=== PATIENT | male | born 1930 | race Caucasian/White ===

== ENCOUNTER 2016-08-06 10:37 | Emergency (ER) | payer OTHER, MEDICARE ==
[~2016-08-06] VITALS: Ht 162.6 cm; Wt 69.9 kg
[~2016-08-06 10:37] MED LIST: ALBUTEROL0.09 MG/A1 INH; BICALUTAMIDE50 MG PO; CALTRATE 600600 MG PO; COUMADIN 5 MG TA5 MG PO; DONEPEZIL HCL10 MG PO; DONEPEZIL HYDRO10 MG PO; ESCITALOPRAM10 MG PO; LISINOPRIL20 MG PO; NAMENDA XR14 MG PO; NAMENDA XR7 MG PO; NEXIUM 40MG40 MG PO; OMEPRAZOLE20 MG PO; SIMVASTATIN40 MG PO; TESSALON PERLE100 MG PO; WARFARIN SODIUM5 MG PO
--- NOTE | 2016-08-06 11:10 | ED AMS/SEIZURE/WEAK/DIZZY ---
History of Present Illness General Chief Complaint: Altered Mental Status Stated Complaint: ALTERED MS Source: patient, family, old records Exam Limitations: dementia Vital Signs & Intake/Output Vital Signs & Intake/Output Vital Signs Date Time Temp Pulse Resp B/P B/P Pulse O2 O2 Flow FiO2 Mean Ox Delivery Rate 08/06 1520 97.8 55 18 178/91 95 Room Air 08/06 1136 Room Air 08/06 1042 96.7 69 18 123/77 97 Room Air Allergies Coded Allergies: NO KNOWN ALLERGIES (08/09/10) Reconcile Medications Bicalutamide 50 MG TAB 1 TAB PO DAILY PROSTATE (Reported) DONEPEZIL HCL (Donepezil HCl) 10 MG TABLET 1 TAB PO BID DEMENTIA/ALZHEIMERS ( Reported) Escitalopram Oxalate 10 MG TABLET 1 TAB PO DAILY DEPRESSION (Reported) Esomeprazole (Nexium) 40 MG CAPSULE.DR 1 CAP PO DAILY GI (Reported) Lisinopril 20 MG TABLET 1 TAB PO DAILY BP (Reported) MEMANTINE HCL (Namenda XR) 7 MG CAP.SPR.24 1 CAP PO BID DEMENTIA/ALZHEIMERS ( Reported) Simvastatin 40 MG TABLET 1 TAB PO QPM CHOLESTEROL (Reported) Warfarin Sodium (Coumadin) 5 MG TABLET 1 TAB PO DAILY DVT (Reported) Triage Note: 85 YO MALE TO TRIAGE WITH FAMILY. PER FAMILY PT HAS BEEN STEADILY DECLINING OVER THE PAST WEEK. STATES HE HAS BEEN TRIPPING ALOT AND SPEAKING A LANUGUAGE THEY CANNOT UNDERSTAND. 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 PT C/O ABD PAIN AND GRABBING L GROIN AREA WITH MOVEMENT. PT TAKEN TO [facility] FOR EKG Triage Nurses Notes Reviewed? yes Onset: Abrupt Duration: week(s): (1), constant, getting worse Timing: recent history Injury Environment: home Severity: moderate, severe Severity Numbers: 8 No Modifying Factors: none Associated Symptoms: denies HPI: 85 year old male with past medical history of dementia, pulmonary embolism on coumadin, hypertension, dyslipidemia, peptic ulcers presents to ER with his family who report that over the past 1 week he has had a steadily declining mental status state. 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 His family states over the past week he has been more confused stumbling and nearly falling which is unlike him he normally ablates without the aid of any assistance. There is no known head strike. He has been intermittently complaining of pain to the left side of his abdomen. He denies headache. There's been no nausea or vomiting however his family reports that this morning he had episode of diarrhea. No black or bloody stools as far as they are aware. No modifying factors or associated symptoms otherwise there is never been episodes like this before. On arrival in my evaluation the patient denies any complaints (CHAN HOFFMAN) Past History Travel History Traveled to [facility] past 21 day No Medical History Any Pertinent Medical History? see below for history Neurological: Alzheimer's disease, dementia EENT: NONE Cardiovascular: hypertension, hyperlipidemia Respiratory: pulmonary embolism Gastrointestinal: GASTRIC ULCER Hepatic: NONE Renal: KIDNEY STONES URETERAL STENT STATUS POST STENT Musculoskeletal: ARTHRITIS Psychiatric: NONE Endocrine: NONE Blood Disorders: PE Cancer(s): prostate cancer Other Medical Hx: Shingles Surgical History Surgical History: URETERAL STENTS Psychosocial History Who do you live with Spouse Services at Home None What is your primary language Sammarinese Tobacco Use: Never used Family History Family History, If Any: Relation not specified for: *No pertinent family history Hx Contributory? No (CHAN HOFFMAN) Review of Systems Review of Systems Constitutional: Reports: see HPI. All Other Systems: Reviewed and Negative Comments Review of systems: See HPI, All other systems negative. Constitutional, no chills no fever, malaise no weight loss HEENT: No visual changes no sore throat no congestion, no ear pain Cardiovascular: No chest pain , no palpitation Skin: no rashes, no change in skin Respiratory: No dyspnea no cough no sputum GI: No nausea no vomiting, diarrhea, no bloating/constipation : No dysuria No hematuria, no frequency, no discharge Muscle skeletal: No joint pain, no joint swelling, no back pain, no neck pain, Neurologic: No numbness confusion, no headache Psych: No stress Heme/endocrine: No bruising Immunology: No lymphadenopathy (CHAN HOFFMAN) Physical Exam Physical Exam General Appearance: well developed/nourished, awake Comments: Well-developed well-nourished person in no acute distress HEENT: Normal EENT exam; PERRL, EOMI, no nystagmus. HEAD is atraumatic. moist mucous membranes. Neck: Supple, nontender normal range of motion without pain or tenderness Back: Nontender, no CVA tenderness. Full range of motion Cardiovascular: Regular rate and rhythms no murmurs rubs Respiratory: Chest nontender.There were no bony deformities, no asymmetry. No respiratory distress. Patient speaking in full complete sentences. Breath sounds clear to auscultation bilaterally: NO W/R/R Abdomen: Soft, nontender nondistended, no appreciable organomegaly. Normal bowel sounds. No rebound/guarding, No appreciable enlargement of the abdominal aorta, No ascites. no hernia Rectal: Brown stool heme-negative Extremity: No edema, full range of motion of extremities, normal and equal pulses bilaterally, 5 out of 5 strength noted to bilateral upper and lower extremities Neuro: Alert oriented x1, motor sensory normal, cranial nerves II through XII grossly intact. There were no obvious focal neurologic abnormalities. Skin: No appreciable rash on exposed skin, skin is warm and dry. Psych: Mood and affect is normal, memory and judgment is normal. Core Measures ACS in differential dx? Yes CVA/TIA Diagnosis: No Severe Sepsis Present: No Septic Shock Present: No (PENELOPE ROBBINS,CHAN) Progress Differential Diagnosis: arrythmia, anemia, benign positional vertigo, CVA/stroke , dehydration, drug intoxication, electrolyte imbalance, GI bleed, hypoglycemia, hypoxia, intracranial Hem., intracranial mass/tumor, meningitis, pneumonia, postural hypotension, presyncope, post-traumatic vertigo, seizure disorder, UTI/ pyelo, vertebrobasilar insuff, sepsis,pna,diverticulitis,colitis Plan of Care: Orders Procedure Date/time Status LACTIC ACID 08/06 1426 Complete LACTIC ACID 08/06 1130 Complete Saline Lock 08/06 1126 Active PARTIAL THROMBOPLASTIN TIME 08/06 1126 Complete PROTHROMBIN TIME 08/06 1126 Complete CULTURE,URINE 08/06 1051 Active URINALYSIS 08/06 1051 Complete TROPONIN LEVEL 08/06 1051 Complete COMPREHENSIVE METABOLIC PANEL 08/06 1051 Complete CBC WITHOUT DIFFERENTIAL 08/06 1051 Complete EKG 08/06 1042 Active Current Medications Sig/Sasha Start time Last Medication Dose Stop Time Status Admin Heparin Sodium/ 25,000 UNIT ONCE ONE 08/06 1515 CAN Dextrose 08/06 1530 (Heparin) Dextrose/Water 500 ML (D5W) Laboratory Tests 08/06/16 1434: Lactic Acid 1.1 08/06/16 1211: PT 12.4, INR 1.18 H, APTT 27 08/06/16 1210: Urinalysis LIGHT H, Urine Color YEL, Urine Clarity CLEAR, Urine pH 6.5, Ur Specific [place] 1.015, Urine Protein TRACE H, Urine Ketones NEG, Urine Nitrite NEG, Urine Bilirubin NEG, Urine Urobilinogen 0.2, Ur Leukocyte Esterase NEG, Ur Microscopic SEDIMENT EXAMINED, Urine RBC 1-3, Urine WBC RARE, Ur Epithelial Cells FEW, Urine Bacteria FEW H, Hyaline Casts 1-3 H, Urine Mucus MOD H, Urine Hemoglobin TRACE-INTACT H, Urine Glucose NEG 08/06/16 1130: Anion Gap 12, Estimated GFR > 60, BUN/Creatinine Ratio 16.4, Glucose 131 H, Lactic Acid 2.6 H, Calcium 8.9, Total Bilirubin 1.0, AST 26, ALT 30, Alkaline Phosphatase 54, Troponin I < 0.01, Total Protein 6.4, Albumin 3.6, Globulin 2.8, Albumin/Globulin Ratio 1.3, CBC w Diff NO MAN DIFF REQ, RBC 4.89, MCV 87.2, MCH 28.6, RDW 13.9, MPV 9.7, Gran % 65.2, Lymphocytes % 26.2, Monocytes % 6.9, Eosinophils % 1.4, Basophils % 0.3, Absolute Granulocytes 3.8, Absolute Lymphocytes 1.5, Absolute Monocytes 0.4, Absolute Eosinophils 0.1, Absolute Basophils 0, PUBS MCHC 32.8 L 08/06/16 1126: Lactic Acid Cancelled Microbiology 08/06 1209 URINE ROUT: Urine Culture - RECD Labs ordered old records reviewed patient alert and oriented to one baseline per family CASE D/W DR ALCANTARA 1250 I SPOKE WITH ONCALLN EUROSURG DR GROVE, DOES NOT BELIEVE PT REQUIRES SURGICAL INTERVENTION AT HTIS TIME, advised [facility] ? mri unavailable at this time here.. PENDING INR, CASE D/W DR ALCANTARA WILL GET CTA HEAD/NECK ANGIO PT RESTING IN BED AT THISTIME WITH NO COMPLAITNS. 1310 I spokewith the pts family mallory over the phone to convey the results of his ct and labs to date Repeat evaluation patient is awake alert and oriented 1 no changes in mental status resting without any complaints 1500 case d/w dr matouk [facility], will accept pt, advised hep bolus and gtt D/WTHE PT AND HIS FAMILY PLAN OF CARE AND NEED FOR TRANSFER WHICH THEY ARE IN AGREEMENT WITH son MILAN [phone] MALLORY [id number] (PENELOPE ROBBINS,CHAN) Diagnostic Imaging: Viewed by Me: Radiology Read, CT Scan. Discussed w/RAD: Radiology Read, CT Scan. Radiology Impression: PATIENT: SHANNEN FISH PRESENT AGE: 85 PATIENT ACCOUNT NO: [id number] : [birth year] LOCATION: [facility] ORDERING PHYSICIAN: CHAN ROBBINS SERVICE DATE: 08/06/16 EXAM TYPE: RAD - XRY- CHEST XRAY, PA AND LATERAL EXAMINATION: XR CHEST CLINICAL INFORMATION: Altered mental syndrome COMPARISON: Chest 12/03/2015. TECHNIQUE: 2 views of the chest were obtained. FINDINGS: The lungs are in moderate inspiration with minimal right basilar atelectasis. Rest of lungs are clear. The heart size is borderline enlarged with normal-appearing pulmonary vascularity. No gross bony abnormality seen. IMPRESSION: Minimal atelectatic changes right lung base. Rest of lungs are clear. DICTATED BY: KWESI SANZ MD DATE/TIME DICTATED:08/06/161252 STEEL WHEEL ENGRAVER:ELÍAS DATE/TIME TRANSCRIBED:08/06/161252 CONFIDENTIAL, DO NOT COPY WITHOUT APPROPRIATE AUTHORIZATION. <Electronically signed in Other Vendor System> SIGNED BY: KWESI SANZ MD 08/06/16 1258, :::::::::::::::::: ::::::::::::::::::::::::::::::::::::::::::::::::::::::::: :::::::::::::::::::::: ::::::::::::::::::::::::::::::::::::::::::::::::::::: :::::::::::::::::::::::::: ::::::::::::::::::::::::::::::::::::::::::::::::: :::::::::::::::::::::::::::::: ::::::::::::::::::::::::::::::::::::::::::: PATIENT: SHANNEN FISH PRESENT AGE: 85 PATIENT ACCOUNT NO: [id number] : [birth year] LOCATION: [facility] ORDERING PHYSICIAN: CHAN ROBBINS SERVICE DATE: 08/06/16 EXAM TYPE: CAT - CT HEAD WO IV CONTRAST EXAMINATION: CT HEAD WITHOUT CONTRAST CLINICAL INFORMATION: Altered mental status. Confusion. Evaluate for acute intracranial hemorrhage. COMPARISON: CT scan of the head 12/03/2015. TECHNIQUE: Contiguous axial imaging was performed from the skull base to vertex without intravenous administration of contrast. DLP: 610.59 mGy-cm FINDINGS: The left transverse sinus, sigmoid sinus, and the visualized portion of the left upper internal jugular vein are hyperdense consistent with thrombosis. There is no acute intracranial hemorrhage or abnormal extra axial collection. No intracranial mass effect or midline shift. Lateral and third ventricles are slightly prominent and there is proportionate prominence of the subarachnoid spaces reflecting a mild degree of global parenchymal volume loss. Numerous foci of hypoattenuation are visualized within the perivascular white matter. 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 Montoya-white matter differentiation is otherwise preserved and there is no evidence of acute territorial infarct. The calvarium and skull base are intact. Mastoid air cells and middle ear cavities are well aerated. Visualized paranasal sinuses are well-aerated. IMPRESSION: There is a thrombus within the left transverse sinus that extends into the left internal jugular vein. Otherwise stable CT scan of the head with no evidence of hemorrhagic venous infarct. This critical result was discussed with Chan Blood at 08/06/2016 12:21 PM and it was ascertained that the content and urgency of the report was understood at the time of direct communication. DICTATED BY: BANDAR BURTON MD DATE/TIME DICTATED:08/06/161213 STEEL WHEEL ENGRAVER:ELÍAS DATE/TIME TRANSCRIBED:08/06/161213 CONFIDENTIAL, DO NOT COPY WITHOUT APPROPRIATE AUTHORIZATION. <Electronically signed in Other Vendor System> SIGNED BY: BANDAR BURTON MD 08/06/16 1230, EXAM TYPE: CAT - CT HEAD ANGIOGRAM; CT NECK ANGIOGRAM EXAMINATION: CT NECK ANGIOGRAM, CT HEAD ANGIOGRAM CLINICAL INFORMATION : Sinus thrombosis. COMPARISON: CT scan of the head 08/06/2016. TECHNIQUE: Tool Salvage Worker images were obtained. A CT angiogram of the head and neck was performed in the arterial phase after the intravenous administration of 100 mL Optiray 350. Pre and delayed postcontrast images of the head were also obtained. MIP reconstructions were generated in multiple orientations at the acquisition workstation. Multiple three-dimensional surface rendered images and maximum intensity projection images were generated on a dedicated 3-D lab workstation. Total exam dose-length product 2476.58 mGy-cm FINDINGS: Head: Hyperdensity of the left transverse sinus, sigmoid sinus, and the left upper internal jugular vein is redemonstrated and there is a corresponding filling defect within these vessels on the delayed postcontrast images consistent with dural venous sinus thrombosis. There is no acute intracranial hemorrhage or abnormal extra-axial collection. No intracranial mass effect or midline shift. Lateral and third ventricles are prominent and there is proportionate prominence of the subarachnoid spaces reflecting a mild degree of parenchymal volume loss. There are numerous foci of hypoattenuation throughout the periventricular white matter that most likely represent a chronic manifestation of small vessel ischemia. 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 Montoya-white matter differentiation is otherwise grossly preserved and there is no evidence of acute territorial infarct. CT angiogram: The aortic arch apex is unremarkable and the origins of the major aortic branches are patent. Common carotid arteries are grossly unremarkable. Partially calcified atheromatous plaque is visualized at both carotid bifurcations. The patency of the extracranial internal carotid arteries and the cervical segments of the vertebral arteries cannot be determined. The intracranial vessels are insufficient opacified and the patency of these vessels cannot be determined on the basis of this examination. Other: Visualized lung apices are clear. Soft tissues of the neck including the thyroid gland are unremarkable. There is mild paranasal sinus disease primarily affecting the ethmoid air cells and maxillary sinuses. Mastoid air cells and middle ear cavities are well-aerated. IMPRESSION: A venous sinus thrombosis within the left transverse sinus beginning at the torcula and extending into the left upper internal jugular vein is redemonstrated. The CT angiogram is nondiagnostic. DICTATED BY: BANDAR BURTON MD DATE/TIME DICTATED:08/06/161411 STEEL WHEEL ENGRAVER:ELÍAS DATE/TIME TRANSCRIBED:08/06/161411 CONFIDENTIAL, DO NOT COPY WITHOUT APPROPRIATE AUTHORIZATION. <Electronically signed in Other Vendor System> SIGNED BY: BANDAR BURTON MD 08/06/16 1435 Initial ED EKG: NSR AT 60, NONSPECIFIC ST SEG CHANGES, LAD Prior EKG: unchanged (11/2015) (CHAN HOFFMAN) Departure Departure Disposition: [facility] (ACUTE) Condition: Stable Clinical Impression Primary Impression: Thrombosis transverse sinus Secondary Impressions: Diverticulosis, Lesion of lung, Liver cyst, Renal cyst Referrals: MILAN WHITTAKER MD (PCP/Family) Departure Forms: Customer Survey General Discharge Information (CHAN HOFFMAN) PA/EDGE TRIMMING MACHINE OPERATOR Co-Sign Statement Statement: ED Attending supervision documentation- x I saw and evaluated the patient. I have also reviewed all the pertinent lab results and diagnostic results. I agree with the findings and the plan of care as documented in the PA's/EDGE TRIMMING MACHINE OPERATOR's documentation. [] I have reviewed the ED Record and agree with the PA's/EDGE TRIMMING MACHINE OPERATOR's documentation. [] Additions or exceptions (if any) to the PAs/EDGE TRIMMING MACHINE OPERATOR's note and plan are summarized below: [] (MARICRUZ ROSADO,YANCY) Critical Care Note Critical Care Note Critical Care Time: 30-74 min (CHAN HOFFMAN)
[2016-08-06 11:47] LABS: ABSOLUTE BASOPHIL COUNT 0 /CUMM (0.0-0.2); ABSOLUTE EOSINOPHIL COUNT 0.1 /CUMM (0.0-0.7); ABSOLUTE GRANULOCYTE CT 3.8 /CUMM (1.4-6.5); ABSOLUTE LYMPH COUNT 1.5 /CUMM (1.2-3.4); ABSOLUTE MONOCYTE COUNT 0.4 /CUMM (0.10-0.60); BASOPHIL % 0.3 % (0.0-2.0); EOSINOPHIL % 1.4 % (0-5); GRANULOCYTE % 65.2 % (42.2-75.2); HEMATOCRIT 42.7 % (42-52); MEAN CORPUSCULAR HGB 28.6 PG (27.0-31.0); MEAN CORPUSCULAR HGB CONC 32.8 G/DL (33.0-37.0); MEAN CORPUSCULAR VOLUME 87.2 FL (80.0-94.0); MEAN PLATELET VOLUME 9.7 FL (7.4-10.4); PLATELET COUNT 125 /CUMM (130-400); RBC DISTRIBUTION WIDTH 13.9 % (11.5-14.5); RED BLOOD CELL CT 4.89 /CUMM (4.70-6.10); WHITE BLOOD CELL COUNT 5.8 /CUMM (4.8-10.8)
--- NOTE | 2016-08-06 12:30 | CT SCAN REPORT ---
EXAMINATION: CT HEAD WITHOUT CONTRAST CLINICAL INFORMATION: Altered mental status. Confusion. Evaluate for acute intracranial hemorrhage. COMPARISON: CT scan of the head 12/03/2015. TECHNIQUE: Contiguous axial imaging was performed from the skull base to vertex without intravenous administration of contrast. DLP: 610.59 mGy-cm FINDINGS: The left transverse sinus, sigmoid sinus, and the visualized portion of the left upper internal jugular vein are hyperdense consistent with thrombosis. There is no acute intracranial hemorrhage or abnormal extra axial collection. No intracranial mass effect or midline shift. Lateral and third ventricles are slightly prominent and there is proportionate prominence of the subarachnoid spaces reflecting a mild degree of global parenchymal volume loss. Numerous foci of hypoattenuation are visualized within the perivascular white matter. 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 Montoya-white matter differentiation is otherwise preserved and there is no evidence of acute territorial infarct. The calvarium and skull base are intact. Mastoid air cells and middle ear cavities are well aerated. Visualized paranasal sinuses are well-aerated. IMPRESSION: There is a thrombus within the left transverse sinus that extends into the left internal jugular vein. Otherwise stable CT scan of the head with no evidence of hemorrhagic venous infarct. This critical result was discussed with Ottoniel Blood at 08/06/2016 12:21 PM and it was ascertained that the content and urgency of the report was understood at the time of direct communication.
[2016-08-06 12:39] LABS: PT 12.4 SEC (9.4-12.5); PTT 27 SEC (25-37)
--- NOTE | 2016-08-06 12:58 | RADIOLOGY REPORT ---
EXAMINATION: XR CHEST CLINICAL INFORMATION: Altered mental syndrome COMPARISON: Chest 12/03/2015. TECHNIQUE: 2 views of the chest were obtained. FINDINGS: The lungs are in moderate inspiration with minimal right basilar atelectasis. Rest of lungs are clear. The heart size is borderline enlarged with normal-appearing pulmonary vascularity. No gross bony abnormality seen. IMPRESSION: Minimal atelectatic changes right lung base. Rest of lungs are clear.
--- NOTE | 2016-08-06 13:24 | CT SCAN REPORT ---
EXAMINATION: CT ABDOMEN AND PELVIS WITHOUT CONTRAST CLINICAL INFORMATION: Colitis, diverticulitis, and diarrhea. COMPARISON: Multiple prior examinations most recent CT August 2014 and PET/CT March 2015. TECHNIQUE: Multidetector volumetric imaging was performed from the superior aspect of the liver through the pubic symphysis. Sagittal and coronal reformatted images were obtained on the technologist's workstation. DLP: 498 mGy-cm. FINDINGS: LUNG BASES: There is persistent slightly more prominent lobulated opacity at the posterior right lower lobe measuring approximately 19 mm transverse and 19 mm AP, previously approximately 14 mm transverse and 16 mm AP. Minimal groundglass opacity bilaterally may reflect mild edema. Unchanged compared to prior. LIVER, GALLBLADDER, AND BILIARY TREE: There is a stable 9 mm hypodense lesion in the right lobe of the liver seen on axial image 15 series 2 compatible with a small simple cyst, unchanged. The 2.4 cm cyst in the left lobe of the liver adjacent to the falciform ligament also remains unchanged. The gallbladder is unremarkable with no evidence of radiopaque gallstones, gallbladder wall thickening, or obvious pericholecystic inflammatory changes. PANCREAS: Atrophic. No mass. SPLEEN: Unremarkable. ADRENAL GLANDS: Unremarkable. KIDNEYS AND URETERS: Atrophic right kidney unchanged. A 2 cm cyst in the upper pole of the left kidney, unchanged. No stones. No hydronephrosis or hydroureter. BLADDER: Unremarkable. GASTROINTESTINAL TRACT: Scattered diverticulosis without diverticulitis. Appendix not seen. No inflammatory changes in the right lower quadrant or mesentery. Small bowel normal. Stomach normal. ABDOMINAL WALL: No significant hernia is appreciated. LYMPH NODES: Normal. VASCULAR: Mild arterial calcification throughout, unchanged. PELVIC VISCERA: Unremarkable. OSSEOUS STRUCTURES: Chondrocalcinosis in the symphysis pubis. Mild degenerative changes of both sacroiliac joints, unchanged. Multilevel spondylosis and degenerative disc changes throughout the visualized thoracolumbar spine. L2 compression fracture, unchanged. New severe compression fracture involving the superior and inferior endplates of T12 not seen on a prior CT of March 2015. But likely evident on a chest x-ray of September 2015. IMPRESSION: 1. No acute abnormality in the abdomen. Diverticulosis of the large bowel but no evidence of diverticulitis. 2. Persistent to slightly more prominent opacity compared with March [address] chest November 2014. In the right lower lobe considered to be a benign process on PET/CT March 2015. 3. Stable benign cysts in the liver and left kidney. 4. Stable atrophic right kidney. 5. Mild calcific atherosclerotic disease. 6. Compression fracture of T12 new compared to CT March 2015 but likely present on a prior chest x-ray September 2015. 7. Stable old compression fracture L2.
--- NOTE | 2016-08-06 14:34 | CT SCAN REPORT ---
EXAMINATION: CT NECK ANGIOGRAM, CT HEAD ANGIOGRAM CLINICAL INFORMATION: Sinus thrombosis. COMPARISON: CT scan of the head 08/06/2016. TECHNIQUE: [employer] images were obtained. A CT angiogram of the head and neck was performed in the arterial phase after the intravenous administration of 100 mL Optiray 350. Pre and delayed postcontrast images of the head were also obtained. MIP reconstructions were generated in multiple orientations at the acquisition workstation. Multiple three-dimensional surface rendered images and maximum intensity projection images were generated on a dedicated 3-D lab workstation. Total exam dose-length product 2476.58 mGy-cm FINDINGS: Head: Hyperdensity of the left transverse sinus, sigmoid sinus, and the left upper internal jugular vein is redemonstrated and there is a corresponding filling defect within these vessels on the delayed postcontrast images consistent with dural venous sinus thrombosis. There is no acute intracranial hemorrhage or abnormal extra-axial collection. No intracranial mass effect or midline shift. Lateral and third ventricles are prominent and there is proportionate prominence of the subarachnoid spaces reflecting a mild degree of parenchymal volume loss. There are numerous foci of hypoattenuation throughout the periventricular white matter that most likely represent a chronic manifestation of small vessel ischemia. 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 Montoya-white matter differentiation is otherwise grossly preserved and there is no evidence of acute territorial infarct. CT angiogram: The aortic arch apex is unremarkable and the origins of the major aortic branches are patent. Common carotid arteries are grossly unremarkable. Partially calcified atheromatous plaque is visualized at both carotid bifurcations. The patency of the extracranial internal carotid arteries and the cervical segments of the vertebral arteries cannot be determined. The intracranial vessels are insufficient opacified and the patency of these vessels cannot be determined on the basis of this examination. Other: Visualized lung apices are clear. Soft tissues of the neck including the thyroid gland are unremarkable. There is mild paranasal sinus disease primarily affecting the ethmoid air cells and maxillary sinuses. Mastoid air cells and middle ear cavities are well-aerated. IMPRESSION: A venous sinus thrombosis within the left transverse sinus beginning at the torcula and extending into the left upper internal jugular vein is redemonstrated. The CT angiogram is nondiagnostic.
[2016-08-06 15:20] VITALS: BP 178/91
== END 2016-08-06 15:26 | disposition short-term general hospital (02) ==
LOC: ERH 10:37
PROVIDERS: Emergency Medicine; Physician Assistant Medical
DX: G08 Intracranial and intraspinal phlebitis and thrombophlebitis (principal); K57.90 Diverticulosis of intestine, part unspecified, without perforation or abscess without bleeding; R91.1 Solitary pulmonary nodule; K76.89 Other specified diseases of liver; N28.1 Cyst of kidney, acquired; I10 Essential (primary) hypertension
CPT/HCPCS: 74176; 81001; 87086; 93005; 93010; 96374; 99291; J1644; J7060

== ENCOUNTER 2017-04-07 17:05 | Emergency (ER) | payer OTHER, MEDICARE ==
[~2017-04-07] VITALS: Ht 165.1 cm; Wt 79.4 kg
[2017-04-07 17:18] VITALS: BP 181/96
[2017-04-07 17:46] LABS: ABSOLUTE BASOPHIL COUNT 0 /CUMM (0.0-0.2); ABSOLUTE EOSINOPHIL COUNT 0 /CUMM (0.0-0.7); ABSOLUTE GRANULOCYTE CT 10.4 /CUMM (1.4-6.5); ABSOLUTE LYMPH COUNT 1.1 /CUMM (1.2-3.4); ABSOLUTE MONOCYTE COUNT 0.4 /CUMM (0.10-0.60); BASOPHIL % 0.2 % (0.0-2.0); EOSINOPHIL % 0.1 % (0-5); GRANULOCYTE % 87.2 % (42.2-75.2); HEMATOCRIT 44.9 % (42-52); MEAN CORPUSCULAR HGB CONC 32.7 G/DL (33.0-37.0); MEAN CORPUSCULAR VOLUME 85.6 FL (80.0-94.0); MEAN PLATELET VOLUME 9.7 FL (7.4-10.4); PLATELET COUNT 200 /CUMM (130-400); RBC DISTRIBUTION WIDTH 14.3 % (11.5-14.5); RED BLOOD CELL CT 5.25 /CUMM (4.70-6.10); WHITE BLOOD CELL COUNT 11.9 /CUMM (4.8-10.8)
== END 2017-04-07 18:40 | disposition admitted as inpatient to this hospital (09) ==
LOC: ERH 17:05
PROVIDERS: Emergency Medicine
DX: R10.9 Unspecified abdominal pain (principal); R11.2 Nausea with vomiting, unspecified; R19.7 Diarrhea, unspecified
CPT/HCPCS: 93005; 93010; 99281

== ENCOUNTER 2017-11-21 14:53 | Emergency (ER) | payer OTHER, MEDICARE ==
--- NOTE | 2017-11-21 16:16 | ULTRASOUND REPORT ---
EXAMINATION: US TRIPLEX LOWER EXTREMITY, RIGHT CLINICAL INFORMATION: Right lower extremity pain swelling and tenderness COMPARISON: None TECHNIQUE: Color-flow triplex imaging with spectral analysis and compression Doppler were performed on the lower extremity. FINDINGS: Respiratory variation, normal compression and augmented flow are noted throughout the lower extremity. The visualized common femoral vein, superficial femoral vein, profunda femoral vein, popliteal vein and midcalf peroneal and posterior tibial venous segments show no evidence of deep venous thrombosis. There is no Ceron's cyst. IMPRESSION: No evidence of deep venous thrombosis involving the lower extremity.
--- NOTE | 2017-11-21 17:20 | ED UPPER/LOWER EXTREMITY COMPL ---
History of Present Illness General Chief Complaint: General Adult Stated Complaint: RT LEG SWELLING , ?DVT Source: patient, family Exam Limitations: dementia Vital Signs & Intake/Output Vital Signs & Intake/Output Vital Signs Date Time Temp Pulse Resp B/P B/P Pulse O2 O2 Flow FiO2 Mean Ox Delivery Rate 11/21 1740 97.7 57 16 156/76 95 Room Air 11/21 1710 Room Air 11/21 1457 96.9 60 17 115/75 96 Room Air Allergies Coded Allergies: NO KNOWN ALLERGIES (08/09/10) Reconcile Medications Amlodipine Besylate 5 MG TABLET 1 TAB PO DAILY BP (Reported) Donepezil HCl (Aricept) 10 MG TABLET 1 TAB PO QHS MEMORY (Reported) Lisinopril 40 MG TABLET 1 TAB PO DAILY BP (Reported) Memantine HCl (Namenda XR) 14 MG CAP.SPR.24 1 CAP PO DAILY MEMORY (Reported) Trazodone HCl 50 MG TABLET 1 TAB PO QHS MENTAL HEALTH/SLEEP (Reported) Warfarin Sodium (Coumadin) 2 MG TABLET 1 TAB PO DAILY BLOOD THINNER (Reported ) Warfarin Sodium (Coumadin) 4 MG TABLET 1 TAB PO DAILY BLOOD THINNER (Reported ) Triage Note: PT REFERRED TO ED FROM [facility] FOR ULTRASOUND OF RIGHT LOWER EXTREMITY. REPORTS PAIN AND SWELLING X 2-3 DAYS. HX OF DVT. PT TAKES COUMADIN. DENIES SOB. Triage Nurses Notes Reviewed? yes Onset: Gradual Duration: day(s): Timing: recent history Severity: moderate Pain/Injury Location: Right: Leg. HPI: 87-year-old male with history of Alzheimer's disease, hypertension, PE/DVT on Coumadin presents to emergency department sent in by Dr. Long for evaluation of right lower extremity swelling. Swelling has been present for the past several days, the patient reports that the area is painful. HPI is somewhat limited due the patient's dementia. His [id number] is present. She states that he has not been complaining of chest pain or dyspnea. No cough. (Neyda ROBBINS,Rochelle Zambrano) Past History Travel History Traveled to [place] past 21 day No Medical History Any Pertinent Medical History? see below for history Neurological: Alzheimer's disease, dementia EENT: NONE Cardiovascular: hypertension, hyperlipidemia Respiratory: pulmonary embolism Gastrointestinal: GASTRIC ULCER Hepatic: NONE Renal: KIDNEY STONES URETERAL STENT STATUS POST STENT Musculoskeletal: ARTHRITIS Psychiatric: NONE Endocrine: NONE Blood Disorders: PE Cancer(s): prostate cancer Other Medical Hx: Shingles Surgical History Surgical History: URETERAL STENTS Psychosocial History Who do you live with Spouse Services at Home None What is your primary language Mongolian Tobacco Use: Never used Family History Family History, If Any: Relation not specified for: *No pertinent family history Hx Contributory? No (Rochelle Rutherford) Review of Systems Review of Systems Constitutional: Reports: no symptoms. EENTM: Reports: no symptoms. Respiratory: Reports: no symptoms. Cardiovascular: Reports: see HPI. Gastrointestinal/Abdominal: Reports: no symptoms. Genitourinary: Reports: no symptoms. Musculoskeletal: Reports: no symptoms. Skin: Reports: no symptoms. Neurological/Psychological: Reports: no symptoms. Hematologic/Endocrine: Reports: no symptoms. Immunological: Reports: no symptoms. All Other Systems: Reviewed and Negative (Rochelle Rutherford) Physical Exam Physical Exam General Appearance: well developed/nourished, no apparent distress, alert, awake Head: atraumatic, normal appearance Eyes: Bilateral: normal appearance. Ears, Nose, Throat: hearing grossly normal Neck: normal inspection, supple, full range of motion Cardiovascular/Respiratory: no respiratory distress, Patient wheezing left lower lobe Peripheral Pulses: 2+ radial (R), 2+ radial (L) Back: normal inspection, normal range of motion Leg Left: 1+ pitting edema Leg Right: 2-3+ pitting edema with tenderness to calf Neurologic/Tendon: normal sensation, normal motor functions Skin: intact, normal color, warm/dry (Rochelle Rutherford) Progress Differential Diagnosis: CHF, contusion, DVT, sprain Plan of Care: Orders Procedure Date/time Status TROPONIN LEVEL 11/21 1730 Complete COMPREHENSIVE METABOLIC PANEL 11/21 1730 Complete CBC WITHOUT DIFFERENTIAL 11/21 1730 Complete B-TYPE NATRIURETIC PEP (BNP) 11/21 1730 Complete EKG 11/21 1730 Active Laboratory Tests 11/21/17 1755: Anion Gap 10, Estimated GFR 48 L, BUN/Creatinine Ratio 20.0, Glucose 93, Calcium 9.0, Total Bilirubin 0.3, AST 23, ALT 31, Alkaline Phosphatase 63, Troponin I < 0.01, Bsw-L-Oexvqmyoxck Pept 147 H, Total Protein 6.9, Albumin 3.9 , Globulin 3.0, Albumin/Globulin Ratio 1.3, CBC w Diff NO MAN DIFF REQ, RBC 4.98 , MCV 80.3, MCH 26.1 L, MCHC 32.5 L, RDW 16.0 H, MPV 9.1, Gran % 55.0, Lymphocytes % 34.0, Monocytes % 6.6, Eosinophils % 4.0, Basophils % 0.4, Absolute Granulocytes 3.3, Absolute Lymphocytes 2.1, Absolute Monocytes 0.4, Absolute Eosinophils 0.2, Absolute Basophils 0 Son is negative for DVT. Given the patient's edema, there is a possibility of CHF although patient does not have CHF history. We'll obtain EKG, labs, chest x -ray. EKG is stable, sinus rhythm. Chest x-ray shows no evidence of CHF. Labs are stable. Patient is ready to go home. He'll follow-up with his primary care physician. He agrees with the plan of care. Diagnostic Imaging: Viewed by Me: Radiology Read, Ultrasound. Discussed w/RAD: Radiology Read, Ultrasound. Radiology Impression: PATIENT: SHANNEN FISH PRESENT AGE: 87 PATIENT ACCOUNT NO: [id number] : [birth year] LOCATION: [facility] ORDERING PHYSICIAN: Rochelle ROBBINS SERVICE DATE: 11/21/17 EXAM TYPE: US - US-UNILATERAL VENOUS DOPPLER EXAMINATION: US TRIPLEX LOWER EXTREMITY, RIGHT CLINICAL INFORMATION: Right lower extremity pain swelling and tenderness COMPARISON: None TECHNIQUE: Color-flow triplex imaging with spectral analysis and compression Doppler were performed on the lower extremity. FINDINGS: Respiratory variation, normal compression and augmented flow are noted throughout the lower extremity. The visualized common femoral vein, superficial femoral vein, profunda femoral vein, popliteal vein and midcalf peroneal and posterior tibial venous segments show no evidence of deep venous thrombosis. There is no Ceron's cyst. IMPRESSION: No evidence of deep venous thrombosis involving the lower extremity. DICTATED BY: Augustine Grady MD DATE/TIME DICTATED :11/21/171611 WILDLIFE SCIENCE PROFESSOR:ELÍAS DATE/TIME TRANSCRIBED:11/21/171611 CONFIDENTIAL, DO NOT COPY WITHOUT APPROPRIATE AUTHORIZATION. < Electronically signed in Other Vendor System> SIGNED BY: Augustine Grady MD 11/21/171615 CXR Impression: PATIENT: SHANNEN FISH PRESENT AGE: 87 PATIENT ACCOUNT NO: [id number] : [birth year] LOCATION: [facility] ORDERING PHYSICIAN: Rochelle ROBBINS SERVICE DATE: 11/21/17 EXAM TYPE: RAD - XRY-CHEST XRAY, TWO VIEWS EXAMINATION: XR CHEST CLINICAL INFORMATION: Bilateral edema. COMPARISON: CT abdomen pelvis 06/02/2017 to TECHNIQUE: 2 views of the chest were obtained. FINDINGS: The lungs are hyperexpanded with platelike atelectasis right lung base. The heart size is enlarged with normal pulmonary vascularity. No gross bony abnormality seen incidental finding of compression fracture T12 vertebra and mild superior endplate deformity L2 vertebra is noted. These findings were visualized on CT abdomen pelvis 06/02/2017. IMPRESSION: Cardiomegaly with mild right basilar atelectasis or scarring. No acute process. DICTATED BY: Pedro Marquez MD DATE/TIME DICTATED:11/21/171822 WILDLIFE SCIENCE PROFESSOR :ELÍAS DATE/TIME TRANSCRIBED:11/21/171822 CONFIDENTIAL, DO NOT COPY WITHOUT APPROPRIATE AUTHORIZATION. <Electronically signed in Other Vendor System> SIGNED BY: Pedro Marquez MD 11/21/17 1830 Initial ED EKG: SINUS RHYTHM @55BPM, NONSPECIFIC ST CHANGES Prior EKG: unchanged (04/07/17) (Neyda ROBBINS,Rochelle Zambrano) Departure Departure Disposition: HOME OR SELF CARE Condition: Stable Clinical Impression Primary Impression: Pedal edema Referrals: Mercedes ROSADO,Silverio Stinson (PCP/Family) Additional Instructions: Follow up with your primary care doctor. Return with worsening symptoms or concerns. Departure Forms: Customer Survey General Discharge Information (Rochelle Rutherford) PA/SHEAR OPERATOR Co-Sign Statement Statement: ED Attending supervision documentation- x I saw and evaluated the patient. I have also reviewed all the pertinent lab results and diagnostic results. I agree with the findings and the plan of care as documented in the PA's/SHEAR OPERATOR's documentation. [] I have reviewed the ED Record and agree with the PA's/SHEAR OPERATOR's documentation. [] Additions or exceptions (if any) to the PAs/SHEAR OPERATOR's note and plan are summarized below: [] (Nasreen ROSADO,Amanuel)
[2017-11-21 17:40] VITALS: BP 156/76
[2017-11-21 18:08] LABS: ABSOLUTE BASOPHIL COUNT 0 /CUMM (0.0-0.2); ABSOLUTE EOSINOPHIL COUNT 0.2 /CUMM (0.0-0.7); ABSOLUTE GRANULOCYTE CT 3.3 /CUMM (1.4-6.5); ABSOLUTE LYMPH COUNT 2.1 /CUMM (1.2-3.4); ABSOLUTE MONOCYTE COUNT 0.4 /CUMM (0.10-0.60); BASOPHIL % 0.4 % (0.0-2.0); MEAN CORPUSCULAR HGB 26.1 PG (27.0-31.0); MEAN CORPUSCULAR HGB CONC 32.5 G/DL (33.0-37.0); MEAN CORPUSCULAR VOLUME 80.3 FL (80.0-94.0); MEAN PLATELET VOLUME 9.1 FL (7.4-10.4); PLATELET COUNT 186 /CUMM (130-400); RED BLOOD CELL CT 4.98 /CUMM (4.70-6.10); WHITE BLOOD CELL COUNT 6.1 /CUMM (4.8-10.8)
--- NOTE | 2017-11-21 18:30 | RADIOLOGY REPORT ---
EXAMINATION: XR CHEST CLINICAL INFORMATION: Bilateral edema. COMPARISON: CT abdomen pelvis 06/02/2017 to TECHNIQUE: 2 views of the chest were obtained. FINDINGS: The lungs are hyperexpanded with platelike atelectasis right lung base. The heart size is enlarged with normal pulmonary vascularity. No gross bony abnormality seen incidental finding of compression fracture T12 vertebra and mild superior endplate deformity L2 vertebra is noted. These findings were visualized on CT abdomen pelvis 06/02/2017. IMPRESSION: Cardiomegaly with mild right basilar atelectasis or scarring. No acute process.
[2017-11-21] MEDS ORDERED: ARICEPT10 M1 PO (18:49)
[2017-11-21] MEDS ORDERED: AMLODIPINE BESYL5 M1 PO (18:49)
[2017-11-21] MEDS ORDERED: COUMADIN2 M1 PO (18:52)
[2017-11-21] MEDS ORDERED: LISINOPRIL40 M1 PO (18:52)
[2017-11-21] MEDS ORDERED: TRAZODONE HCL50 M1 PO (18:53)
[2017-11-21] MEDS ORDERED: NAMENDA XR14 M1 PO (18:53)
[2017-11-21] MEDS ORDERED: COUMADIN4 M1 PO (18:53)
== END 2017-11-21 19:35 ==
LOC: ERH 14:53
PROVIDERS: Physician Assistant
DX: R60.0 Localized edema (principal); I10 Essential (primary) hypertension; I26.99 Other pulmonary embolism without acute cor pulmonale; Z79.01 Long term (current) use of anticoagulants
CPT/HCPCS: 71046; 93005; 93010